=== PATIENT | male | born 1985 | race Caucasian/White ===

== ENCOUNTER → 2022-12-14 10:50 | Outpatient (CLI) | payer OTHER, SELFPAY ==
--- NOTE | ~2022-12-14 | MR_ITS ---
MRI of the lumbar spine Clinical History: Back pain Technique: Axial T2-weighted images, and sagittal T1-weighted, T2-weighted, and T2 fat-sat images wer e acquired. Findings: There is no fracture or subluxation of the lumbar spine. Intraosseous hemangioma noted in t he L2 vertebral body. No other bone marrow signal abnormality seen. At L1-L2, there is no disc bulge or herniation. No spinal canal stenosis or neural foraminal narrowin g. At L2-L3, there is no disc bulge or herniation. No spinal canal stenosis or neural foraminal narrowin g. At L3-L4, there is no disc bulge or herniation. No spinal canal stenosis or neural foraminal narrowin g. At L4-L5, there is a small central disc protrusion. Minimal facet joint degenerative change present. No ronda spinal canal stenosis or neural foraminal narrowing. At L5-S1, there is minimal disc bulge, with small annular tear. There is minimal facet joint degenera tive change. No spinal canal stenosis or neural foraminal narrowing. Impression: Minimal degenerative spondylosis, as detailed above. No ronda canal stenosis or neural foraminal narr owing. Reviewed, dictated and finalized at location . ATIONS MANAGER/COORDINATOR Impression: Minimal degenerative spondylosis, as detailed above. No ronda canal stenosis or neural foraminal narrowing.
== END ==
PROVIDERS: PCP Family Medicine
DX: M54.50 Low back pain, unspecified (principal)
CPT/HCPCS: 72148